=== PATIENT | female | born 1965 | race Caucasian/White ===

== ENCOUNTER 2024-01-02 12:34 | Emergency (ER) | payer OTHER, SELFPAY ==
[2024-01-02 12:40] VITALS: BP 144/86
--- NOTE | 2024-01-02 13:40 | ED.MUSCINJ ---
HPI-Injury
General
Chief Complaint: Fall
Source: patient
Exam Limitations: none
Time Seen by Provider: 01/02/24 13:06
Travel History
Have you had any contact with someone who has COVID-19?: No
Do you have any symptoms of coronavirus? Fever > 100 degrees, chills, cough, shortness of breath, sore throat, loss of taste or smell, muscle aches, or headache?: No
History of Present Illness-Injury
Initial Injury comments:
58-year-old female presents after a fall down steps. She fell down a flight of stairs injuring both hands left knee hitting her face and head. No loss conscious. She not anticoagulated. She denies chest or abdominal pain. No neck or back pain.
She was ambulatory after the fall. No other complaints at this time
Phy Exam
Physical Exam
Physical Exam:
General: Well-appearing female no acute respiratory distress
HEENT: Normocephalic the bridge of the nose is ecchymotic swollen and tender. Pupils equal round reactive to light no active bleeding in the nasal cavities bilaterally
Heart: Regular rate and rhythm no murmurs
Lungs: Clear to auscultation bilaterally no wheezing
Abd: soft, nontender, nondistended
Ext: no cyanosis or edema
MSK: Spine nontender, good ROM all extremities. The left knee is swollen ecchymotic and tender anteriorly with overlying abrasion. The right knee has a small abrasion. No deformities. Good range of motion both upper extremities. The left hand
has ecchymosis and swelling dorsally over the MCP joint mainly over the long finger.
Neuro: Alert and oriented x 3. no facial asymmetry
Injury Course
Orders/Labs/Results
Orders:
Orders
01/02/24 12:44
CR Hand - Left Min 3 Views Urgent
Comment:
Reason For Exam: fall/pain
CR Knee - Left 4 Or More View* Urgent
Comment:
Reason For Exam: fall/pain
Hand, Right 3 View [CR Hand - Right Min 3 Views] Urgent
Comment:
Reason For Exam: fall/pain
01/02/24 12:47
CT Facial Bones W/o Iv Contras Urgent
Comment:
Reason For Exam: fall down [address] Head W/o Iv Contrast Urgent
Comment:
Reason For Exam: fall down 12 steps
01/02/24 14:14
Ibuprofen [Motrin] 600 mg PO NOW STA
01/02/24 14:20
Ibuprofen [Motrin] 600 mg .ROUTE .STK-MED ONE
MDM/Problems Addressed
Differential Diagnosis Includes:
Mechanical fall down steps. Concern for traumatic injuries to the face head hands and left knee. X-rays of the left and right hands are pending. X-ray left knee and CT of the face and head pending. No indication for imaging of the neck.
*Critical Care Note
Total Time (30-74mins, 75-104mins- exclusive of procedures): Not Applicable
Update Note
Update Note:
CT of the facial bones demonstrate nondisplaced distal nasal bone fracture. CT of the head negative for acute intracranial injury. X-rays of both hands and left knee are negative. Patient given ice packs and Motrin. Stable for discharge
ED Attending Note
-
Portions of this chart may have been created with voice recognition software.� Occasional wrong word or��sound alike� substitutions may have occurred due to the inherent limitations of voice recognition software.
Discharge Plan
Departure
Patient Disposition: Home (Routine Discharge)
Date of Disposition: 01/02/24
Time of Disposition: 14:15
Patient with high blood pressure during this ER visit?: No
Discharge Problem:
Fracture of nasal bone
Instructions: Nose fracture, Wound Care (DC)
Activity Restrictions/Additional Instructions:
Use ice to the sore spots. Continue with ibuprofen for pain. Return here for worsening symptoms otherwise follow-up with family doctor
Interventions
Interventions:
*Risk Screen - Suicide Last Done: 01/02/24 12:40
*General Assessment Last Done: 01/02/24 12:40
*Neglect/Abuse Screening Last Done: 01/02/24 12:40
*ED COVID-19 Vaccine History Last Done: 01/02/24 12:40
*Nursing Disposition Last Done: 01/02/24 14:40
ED-Musculoskeletal Assessment Last Done: 01/02/24 13:02
ED- Neurological Assessment Last Done: 01/02/24 13:02
ED-Skin Assessment Last Done: 01/02/24 13:02
Discharge Date and Time
Discharge Date/Time: 01/02/24 14:59
Print Language: MALAGASY
[2024-01-02] MEDS: MOTRIN 600 MG PO (14:20)
== END 2024-01-02 14:59 | disposition home or self-care (01) ==
LOC: EMR 12:34
PROVIDERS: EMERGENCY PHYSICIAN Emergency Medicine; FAMILY PHYSICIAN Nurse Practitioner Family
DX: S02.2XXA Fracture of nasal bones, initial encounter for closed fracture (principal); S80.02XA Contusion of left knee, initial encounter; S00.33XA Contusion of nose, initial encounter; S60.222A Contusion of left hand, initial encounter; S80.212A Abrasion, left knee, initial encounter; S80.211A Abrasion, right knee, initial encounter; M79.641 Pain in right hand; M79.642 Pain in left hand; M25.462 Effusion, left knee; M25.562 Pain in left knee; W10.9XXA Fall (on) (from) unspecified stairs and steps, initial encounter; Z88.2 Allergy status to sulfonamides
CPT/HCPCS: 99284; 70450; 70486; 73130; 73564

== ENCOUNTER → 2024-01-23 17:13 | Outpatient (REF) | payer OTHER, SELFPAY | LOC: WDC 17:13 | PROVIDERS: ATTENDING PHYSICIAN Nurse Practitioner Adult Health; FAMILY PHYSICIAN Nurse Practitioner Family | DX: Z12.31 Encounter for screening mammogram for malignant neoplasm of breast (principal) | CPT/HCPCS: 77063; 77067 ==

== ENCOUNTER → 2025-03-25 07:32 | Outpatient (REF) | payer OTHER, SELFPAY | LOC: RAD 07:32 | PROVIDERS: ATTENDING PHYSICIAN Nurse Practitioner Family | DX: R10.32 Left lower quadrant pain (principal) | CPT/HCPCS: 74177; Q9967 ==